=== PATIENT | female | born 1955 | race Caucasian/White ===

== ENCOUNTER 2017-12-09 10:07 | Emergency (ER) | payer OTHER ==
--- OUTSIDE RECORDS SUMMARY | 2017-12-09 10:09 | XMS REPORT | Continuity of Care Document ---
:1955 Author Organization Interface Problems Problem Status Onset Date Classification Date Comments Source Reported Medications Medication Details Route Status Patient Ordering Order Source Instructions Provider Date Allergies, Adverse Reactions, Alerts Substance Category Reaction Severity Reaction Status Date Comments Source type Reported Immunizations Immunization Date Given Site Status Last Updated Comments Source Results Order Results Value Reference Date Interpretation Comments Source Name Range Vital Signs Vital Sign Value Date Comments Source Encounters Location Location Encounter Encounter Reason Attending ADM DC Status Source Details Type Number For Provider Date Date Visit Outpatient [id number] TANIA 06/27 [facility] [place] Procedures Procedure Code Date Perfomer Comments Source
--- OUTSIDE RECORDS SUMMARY | 2017-12-09 10:09 | XMS REPORT | Clinical Summary ---
:1955 Author Organization [facility] Address [address] [place] [address] Care Team Providers Name Role Phone Raheel Trejo MD Primary Care Provider Allergies Active Allergy Reactions Severity Noted Date Comments Fluticasone-Salmeterol 08/11/2015 Severe Cough Codeine 08/10/2015 Levofloxacin Anaphylaxis High 08/11/2015 Tramadol 08/11/2015 Nausea, Hallucinations Current Medications Prescription Sig. Disp. Refills Start Date End Date Status albuterol (PROVENTIL Inhale 2 Active HFA;VENTOLIN HFA) 90 puffs every 6 mcg/actuation (six) hours inhaler as needed for wheezing. fluticasone 1 spray into Active (FLONASE) 50 each nostril mcg/actuation nasal daily. spray cetirizine (ZyrTEC) Take 10 mg by Active 10 MG tablet mouth daily. B-complex with Take 1 tablet Active vitamin C tablet by mouth daily. MULTIVIT WITH Take 1 tablet Active CALCIUM,IRON,MIN by mouth. (WOMEN'S DAILY MULTIVITAMIN ORAL) ERGOCALCIFEROL, Take by mouth Active VITAMIN D2, (VITAMIN daily. D2 ORAL) ascorbic acid Take 100 mg Active (VITAMIN C) 100 MG by mouth tablet daily. DULoxetine Take 20 mg by Active (CYMBALTA) 20 MG mouth daily. 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 (Primary Dx) 03/03/2017 Office Visit Rheumatology Vannessa Ambrose, Generalized OA ( Primary Dx); Hives; Vitamin D deficiency; Osteopenia; Fatigue, unspecified type 02/26/2017 Telephone Family Medicine Alexandra Mullins MD 02/26/2017 Telephone Rheumatology Vannessa Ambrose MD after 12/08/2016 Immunizations Name Dates Previously Given Next Due Influenza (IM) Preservative Free 03/09/2014 Tdap 10/13/2014 Family History Medical History Relation Name Comments Alcohol abuse Brother Diabetes Father Gallbladder disease Father Glaucoma Father Heart disease Father COPD Mother Gallbladder disease Mother Relation Name Status Comments Brother Father (Age 79) Mother (Age 90) Social History Tobacco Use Types Packs/Day Years Used Date Never Smoker Smokeless Tobacco: Never Used Alcohol Use Drinks/Week oz/Week Comments No Sex Assigned at Date Recorded Not on file Last Filed Vital Signs Vital Sign Reading Time Taken Blood Pressure 118/76 03/21/2017 2:14 PM CDT Pulse 78 03/21/2017 2:14 PM CDT Temperature 37.1 C (98.8 F) 03/03/2017 12:58 PM CDT Respiratory Rate 14 03/21/2017 2:14 PM CDT Oxygen Saturation 98% 03/21/2017 2:14 PM CDT Inhaled Oxygen Concentration - - Weight 56.3 kg (124 lb 3.2 oz) 03/21/2017 2:14 PM CDT Height 167.6 cm (5' 6") 03/21/2017 2:14 PM CDT Body Mass Index 20.05 03/21/2017 2:14 PM CDT Plan of Treatment Health Maintenance Due Date Last Done Comments SHINGRIX VACCINE (#1) 2006 BREAST CANCER SCREENING 04/09/2016 04/09/2014 ZOSTER VACCINE 2016 CERVICAL CANCER SCREENING 07/10/2017 07/10/2014 INFLUENZA VACCINE 01/07/2018 03/09/2014 COLON CANCER SCREENING 06/09/2023 06/09/2013 Procedures Procedure Name Priority Date/Time Associated Comments Diagnosis BONE DENSITY Routine 03/21/2017 2:05 Vitamin D Results for this PM CDT deficiency procedure are in the results section. VITAMIN D 25 HYDROXY Routine 03/03/2017 1:54 Generalized OA Results for this LEVEL PM CDT procedure are in the results section. RHEUMATOID FACTOR Routine 03/03/2017 1:54 Generalized OA Results for this PM CDT procedure are in the results section. HLA-B27 ANTIGEN Routine 03/03/2017 1:54 Generalized OA Results for this PM CDT procedure are in the results section. DNA AB SCREEN Routine 03/03/2017 1:54 Generalized OA Results for this PM CDT procedure are in the results section. CYCLIC CITRULLINATED Routine 03/03/2017 1:54 Generalized OA Results for this PEPTIDE AB, IGG PM CDT procedure are in the results section. C4 COMPLEMENT Routine 03/03/2017 1:54 Generalized OA Results for this COMPONENT PM CDT procedure are in the results section. C3 COMPLEMENT Routine 03/03/2017 1:54 Generalized OA Results for this COMPONENT PM CDT procedure are in the results section. KAROL SCREEN W IFA W Routine 03/03/2017 1:54 Generalized OA Results for this REFLEX TO TITER PM CDT procedure are in the results section. T4, FREE Routine 03/03/2017 1:54 Fatigue, Results for this PM CDT unspecified type procedure are in the results section. THYROID STIMULATING Routine 03/03/2017 1:54 Fatigue, Results for this HORMONE PM CDT unspecified type procedure are in the results section. URINALYSIS, AUTOMATED Routine 03/03/2017 1:54 Generalized OA Results for this WITH MICROSCOPY PM CDT procedure are in the results section. SEDIMENTATION RATE Routine 03/03/2017 1:54 Generalized OA Results for this PM CDT procedure are in the results section. C-REACTIVE PROTEIN Routine 03/03/2017 1:54 Generalized OA Results for this PM CDT procedure are in the results section. COMPREHENSIVE Routine 03/03/2017 1:54 Generalized OA Results for this METABOLIC PANEL PM CDT procedure are in the results section. CBC WITH PLATELET AND Routine 03/03/2017 1:54 Generalized OA Results for this DIFFERENTIAL PM CDT procedure are in the results section. after 12/08/2016 Results Bone Density (03/21/2017 2:05 PM) Narrative Performed At [facility] [address] [facility] [place] [address] Bone Density Report Name: Guru Vincent Sex: Female Age: 61 Ethnicity: White Height: 65.3 in Referring Provider: VANNESSA AMBROSE Date of : 1955 Weight: 124.2lb Indication: Postmenopausal; screening for osteoporosis Accession number: [id number] Bone Density: Exam date 03/21/2017 Region BMD (g/cm2) T-score Z-score Classification AP Spine(L1-L4) 1.1230.72.2 Normal Femoral Neck(Left) 0.811 -0.31.0 Normal Total Hip(Left) 0.907 -0.30.7 Normal Femoral Neck(Right) 0.8560.11.4 Normal Total Hip(Right) 0.9420.01.0 Normal Total Hip Mean 0.925 -0.2 0.9 Normal World Health Organization criteria for BMD impression classify patients as Normal (T-score at or above 1.0), Osteopenia (T-score between 1.0 and 2.5), or Osteoporosis (T-score at or below 2.5). 10-year Fracture Risk: FRAX not reported because: All T-scores for Spine Total, Hip Total, Femoral Neck at or above -1.0 Impression: The patient has normal bone mass. Discussion: This patient s bone mineral density is above the minimum desirable level (T-score -1.0 or better) at all sites measured. The patient should follow a healthful lifestyle (good nutrition with adequate calcium and vitamin D, and appropriate weight-bearing exercise). Follow-Up: Consider repeating this study in 5 years or sooner if there is some new clinical indication. Reported by: Hemanth Slater MD, RENALDO, MACE, FACP, CCD on 03/24/2017 5:49:00 AM. Performing Organization Address City/State/Zipcode Phone Number [facility] [address] [place] [address] KAROL SCREEN W IFA W REFLEX TO TITER (03/03/2017 1:54 PM) KAROL screen POSITIVE (A) NEGATIVE [facility] Comment: KAROL IFA is a first line screen for detecting the presence of up to approximately 150 autoantibodies in various autoimmune diseases. A positive KAROL IFA result is suggestive of autoimmune disease and reflexes to titer and pattern. Further laboratory testing may be considered if clinically indicated. Visit Physician FAQs for interpretation of all antibodies in the [place], prevalence, and association with diseases at http://education.[facility]/ faq/ILB898 KAROL pattern SPECKLED (A) [facility] Comment: Speckled pattern is associated with mixed connective tissue disease (MCTD), systemic lupus erythematosus (SLE), Sjogren's syndrome, dermatomyositis, and systemic sclerosis/polymyositis overlap. KAROL titer 1:40 (H) titer [facility] Comment: A low level KAROL titer may be present in pre-clinical autoimmune diseases and normal individuals. Reference Range <1:40Negative 1:40-1:80Low Antibody Level >1:80Elevated Antibody Level Specimen Blood Narrative Performed At FASTING:NO [facility] Resulting Agency Comment Performing Organization Information: Site ID: [id number] Name: [facility] Address: [address] [place] [phone] Director: Dr. Avel Mcleod Performing Organization Address [facility] Cent[facility] Phone Number [phone] [address] [address] DNA Ab screen (03/03/2017 1:54 PM) DNA ds antibody <1 IU/mL [facility] Comment: IU/mL Interpretation < or=4Negative 5-9 Indeterminate > or=10 Positive Specimen Blood Narrative Performed At FASTING:NO [facility] Resulting Agency Comment Performing Organization Information: Site ID: [id number] Name: [facility] Address: [address] [place] [phone] Director: Dr. Avel Mcleod Performing Organization Address [facility] [place]/Zipcode Phone Number [phone] [address] [address] HLA-B27 antigen (03/03/2017 1:54 PM) HLA B27 POSITIVE (A) NEGATIVE [facility] Specimen Blood Narrative Performed At FASTING:NO [facility] Resulting Agency Comment Performing Organization Information: Site ID: [id number] Name: [facility] Address: [address] [place] [phone] Director: Dr. Avel Mcleod Performing Organization Address [facility] Centercode Phone Number [employer] [address] Cyclic citrullinated peptide antibody, IgG (03/03/2017 1:54 PM) Cyclic citrullin peptide <16 UNITS [facility] Comment: II Reference Range Negative:<20 Weak Positive: 20-39 Moderate Positive: 40-59 Strong Positive: >59 Specimen Blood Narrative Performed At FASTING:NO [facility] Resulting Agency Comment Performing Organization Information: Site ID: [id number] Name: [facility] Address: [address] [place] [phone] Director: Dr. Avel Mcleod Performing Organization Address [facility] [place]/[facility] Phone Number [employer] [address] Vitamin D 25 hydroxy level (03/03/2017 1:54 PM) Vitamin D, 25-hydroxy 57 30 - 100 ng/mL [place] Comment: REPUBLIC Vitamin D Status 25-OH Vitamin D: Deficiency:<20 ng/mL Insufficiency: 20 - 29 ng/mL Optimal: > or=30 ng/mL For 25-OH Vitamin D testing on patients on D2-supplementation and patients for whom quantitation of D2 and D3 fractions is required, the [facility](TM) 25-OH VIT D, (D2,D3), LC/MS/MS is recommended: order code 03530 (patients >2yrs). For more information on this test, go to: http://education.[employer]/faq/OPN160 (This link is being provided for informational/educational purposes only.) Specimen Blood Narrative Performed At FASTING:NO [facility] Resulting Agency Comment Performing Organization Information: Site ID: [id number] Name: [facility] Address: [address] [place] [phone] Director: Fior Scruggs MD Performing Organization Address City/[facility]/Zipcode Phone Number [email or web address] [address] [phone] Urinalysis, automated with microscopy (03/03/2017 1:54 PM) Color, UA YELLOW YELLOW [place] [facility] Appearance CLEAR CLEAR [place] [facility] Specific gravity, urine 1.007 1.001 - 1.035 [facility] REPUBLIC pH, urine 6.0 5.0 - 8.0 [facility] Glucose, urine NEGATIVE NEGATIVE [facility] Bilirubin, UA NEGATIVE NEGATIVE [facility] Ketones, UA NEGATIVE NEGATIVE [facility] Occult blood, urine NEGATIVE NEGATIVE [facility] Protein, UA NEGATIVE NEGATIVE [facility] Nitrite, UA NEGATIVE NEGATIVE [facility] Leukocyte esterase, UA NEGATIVE NEGATIVE [facility] WBC, UA NONE SEEN < OR=5 /HPF [facility] RBC, UA NONE SEEN < OR=2 /HPF [facility] Squamous epithelial cells, UA NONE SEEN < OR=5 /HPF [facility] Bacteria, UA NONE SEEN NONE SEEN /HPF [facility] Hyaline casts, UA NONE SEEN NONE SEEN /LPF [facility] Specimen Urine Narrative Performed At FASTING:NO [facility] Resulting Agency Comment Performing Organization Information: Site ID: [id number] Name: [facility] Address: [address] [place] [phone] Director: Fior Scruggs MD Performing Organization Address [facility] Centercode Phone [email or web address] [address] Sedimentation rate (03/03/2017 1:54 PM) Sedimentation rate 6 < OR=30 mm/h [place] [facility] Specimen Blood Narrative Performed At FASTING:NO [facility] Resulting Agency Comment Performing Organization Information: Site ID: [id number] Name: [facility] Address: [address] [place] [phone] Director: Fior Scruggs MD Performing Organization Address City/State/[facility] Centercode [email or web address] [address] CBC with platelet and differential (03/03/2017 1:54 PM) WBC 5.3 3.8 - 10.8 Thousand/uL [place] [facility] RBC 4.19 3.80 - 5.10 Million/uL [place] [facility] HGB 13.9 11.7 - 15.5 g/dL [place] [facility] HCT 39.4 35.0 - 45.0 % [place] [facility] MCV 94.0 80.0 - 100.0 fL [place] [facility] MCH 33.2 (H) 27.0 - 33.0 pg [place] [facility] MCHC 35.3 32.0 - 36.0 g/dL [place] [facility] RDW 11.9 11.0 - 15.0 % [place] [facility] Platelet count 266 140 - 400 Thousand/uL [place] [facility] MPV 10.6 7.5 - 12.5 fL [place] [facility] Neutrophils, absolute 3,429 1,500 - 7,800 cells/uL [place] [facility] Lymphocytes, absolute 1,378 850 - 3,900 cells/uL [place] [facility] Monocytes, absolute 345 200 - 950 cells/uL [place] [facility] Eosinophils, absolute 90 15 - 500 cells/uL [place] [facility] Basophils, absolute 58 0 - 200 cells/uL [place] [facility] Neutrophils 64.7 % [place] [facility] Lymphocytes 26.0 % [place] [facility] Monocytes 6.5 % [place] [facility] Eosinophils 1.7 % [place] [facility] Basophils + RC 1.1 % [place] [facility] Specimen Blood Narrative Performed At FASTING:NO [facility] Resulting Agency Comment Performing Organization Information: Site ID: [id number] Name: [facility] Address: [address] [place] [phone] Director: Fior Scruggs MD Performing Organization Address City/[facility]/Zipcode Phone Number [email or web address] [place] [phone] Rheumatoid factor (03/03/2017 1:54 PM) Rheumatoid factor <14 <14 IU/mL [place] [facility] Specimen Blood Narrative Performed At FASTING:NO [facility] Resulting Agency Comment Performing Organization Information: Site ID: [id number] Name: [facility] Address: [address] [place] [phone] Director: Fior Scruggs MD Performing Organization Address City/State/Zipcode Phone Number [email or web address] [address] [address] C3 complement component (03/03/2017 1:54 PM) C3 complement 97 90 - 180 mg/dL [place] [facility] Specimen Blood Narrative Performed At FASTING:NO [facility] Resulting Agency Comment Performing Organization Information: Site ID: [id number] Name: [facility] Address: [address] [place], [place] [phone] Director: Fior Scruggs MD Performing Organization Address [facility] Centercode Phone [email or web address] [address] C4 complement component (03/03/2017 1:54 PM) C4 complement 22 16 - 47 mg/dL [place] [facility] Specimen Blood Narrative Performed At FASTING:NO [facility] Resulting Agency Comment Performing Organization Information: Site ID: [id number] Name: [facility] Address: [address] [place] [phone] Director: Fior Scruggs MD Performing Organization Address [facility] Centercosc Phone [email or web address] [address] C-reactive protein (03/03/2017 1:54 PM) CRP 0.6 <8.0 mg/L [place] [facility] Comment: Please note recent reference range and units of measure changes Specimen Blood Narrative Performed At FASTING:NO [facility] Resulting Agency Comment Performing Organization Information: Site ID: [id number] Name: [facility] Address: [address] [place] [phone] Director: Fior Scruggs MD Performing Organization Address [facility] [email or web address] [address] Thyroid stimulating hormone (03/03/2017 1:54 PM) TSH 1.21 0.40 - 4.50 mIU/L [place] [facility] Specimen Blood Narrative Performed At FASTING:NO [facility] Resulting Agency Comment Performing Organization Information: Site ID: [id number] Name: [facility] Address: [address] [place] [phone] Director: Fior Scruggs MD Performing Organization Address [facility] Phone [email or web address] [address] T4, free (03/03/2017 1:54 PM) T4, free 0.9 0.8 - 1.8 ng/dL [place] [facility] Specimen Blood Narrative Performed At FASTING:NO [facility] Resulting Agency Comment Performing Organization Information: Site ID: RGA Name: [facility] Address: [address] [place] [phone] Director: Fior Scruggs MD Performing Organization Address [facility] Centercode Phone Number [email or web address] REPUBLIC [address] [place] [phone] Comprehensive metabolic panel (03/03/2017 1:54 PM) Glucose 94 65 - 99 mg/dL [place] Comment: REPUBLIC Fasting reference interval BUN, whole blood 20 7 - 25 mg/dL [place] [facility] Creatinine 0.88 0.50 - 0.99 [place] Comment: mg/dL REPUBLIC For patients >49 years of age, the reference limit for Creatinine is approximately 13% higher for people identified as -[place]. EGFR Non-Afr. [place] 71 > OR=60 [facility] mL/min/1.73m2 REPUBLIC EGFR 83 > OR=60 [facility] mL/min/1.73m2 REPUBLIC BUN/creatinine ratio NOT APPLICABLE 6 - 22 (calc) [place] [facility] Sodium 138 135 - 146 mmol/L [place] [facility] Potassium 4.3 3.5 - 5.3 mmol/L [place] [facility] Chloride 102 98 - 110 mmol/L [place] [facility] CO2 30 20 - 31 mmol/L [place] [facility] Calcium 9.9 8.6 - 10.4 mg/dL [place] [facility] Protein 7.3 6.1 - 8.1 g/dL [place] [facility] Albumin, S 4.7 3.6 - 5.1 g/dL [place] [facility] Globulin, total 2.6 1.9 - 3.7 g/dL [place] (calc) REPUBLIC Albumin/globulin ratio 1.8 1.0 - 2.5 (calc) [place] [facility] Total bilirubin 0.6 0.2 - 1.2 mg/dL [place] [facility] Alkaline phosphatase 89 33 - 130 U/L [place] [facility] AST 31 10 - 35 U/L [place] [facility] ALT 21 6 - 29 U/L [place] [facility] Specimen Blood Narrative Performed At FASTING:NO [facility] Resulting Agency Comment Performing Organization Information: Site ID: [id number] Name: [facility] Address: [address] [place] [phone] Director: Fior Scruggs MD Performing Organization Address City/[facility]/Zipcode Phone Number [email or web address] [place] [address] [place] [address] after 12/08/2016 Insurance Payer Benefit Plan / Group Subscriber ID Type Phone Address AETNA AETNA HMO,POS,EPO, MC/EC xxxxxxxxxx HMO [phone] [place], [facility] [address]
[2017-12-09] MEDS ORDERED: ONDANSETRON 4 MG/2 ML VIAL ONE ×2 (10:58→18:58)
[2017-12-09] MEDS ORDERED: NA CHLORIDE 0.9% 1,000 ML ONE ×2 (10:58→16:12)
[2017-12-09 11:18] LABS: Absolute Lymphocytes (CBC) 0.5 K/uL (0.7-4.9); Absolute Monocytes 0.6 K/uL (0.1-1.3); Absolute Neutrophil 16.5 K/uL (1.8-8.0); Basophils % 0.3 % (0-1.3); Eosinophils % 0.5 % (0-4.4); Hematocrit 41.5 % (36.0-45.0); Lymphocytes % 2.7 % (15.3-44.8); MCH 34.4 pg (27.0-35.0); MCV 101.2 fL (80-100); MPV 8.1 fL (7.6-11.3); Monocytes % 3.6 % (3.3-12.3)
[2017-12-09 11:28] LABS: Protime INR 1.13
[2017-12-09] MEDS ORDERED: FENTANYL CITR 100 MCG/2 ML ONE ×2 (11:42→17:40)
[2017-12-09 11:47] LABS: Blood Morphology Comment NOT SEEN (NOT SEEN); Platelet Estimate ADEQ; Urine White Blood Cell Casts OK
[2017-12-09 11:48] LABS: ALT/SGPT 25 U/L (12-78); AST/SGOT 25 U/L (15-37); Albumin 3.3 g/dL (3.4-5.0); Alkaline Phosphatase 99 U/L (45-117); BUN Blood Urea Nitrogen 16 mg/dL (7-18); Bicarbonate 29 mmol/L (21-32); Bilirubin Direct 0.3 mg/dL (0-0.2); CKMB Creatine Kinase MB < 1.0 ng/mL (0.3-3.6); Creatine Phosphokinase 78 U/L (26-192); Glucose Level 100 mg/dL (74-106); Magnesium 1.9 mg/dL (1.8-2.4); NT PRO-BNP 223 pg/mL (<125); Potassium 3.2 mmol/L (3.5-5.1); Protein, Total 7.5 g/dL (6.4-8.2); Sodium Level 135 mmol/L (136-145)
--- NOTE | 2017-12-09 13:07 | RAD REPORT ---
EXAM DESCRIPTION: CT - Chest For Pe Angio - 12/09/2017 12:46 pm CLINICAL HISTORY: Chest pain. CHEST PAIN COMPARISON: THORAX W CONTRAST dated 11/04/2014; Chest Single View dated 12/09/2017 TECHNIQUE: CT angiogram of the pulmonary arteries was performed with MIP. All CT scans are performed using dose optimization technique as appropriate and may include automated exposure control or mA/KV adjustment according to patient size. FINDINGS: No evidence of pulmonary thromboembolism. No acute aortic finding demonstrated. Enlarged area of lung consolidation is seen in the left lung base without significant air bronchogram s, most compatible with pneumonia. Additional nodular opacities are also present in the left lower lo be adjacent to the area of consolidation, the largest measuring 2 cm. Areas of bronchiectasis are not ed in the right middle lobe and lingula. Heavily calcified granuloma is present in the right lower lo be. A mild mosaic appearance to the lung jones is seen. Trace left pleural fluid. Mildly prominent lymph nodes are seen in the mediastinum, particularly the subcarinal station with largest is 15 mm in short axis. No concerning bony finding. IMPRESSION: No evidence of pulmonary thromboembolism. Large area of airspace consolidation left lung base posteriorly as detailed favors pneumonia. Followu p bronchoscopy may be of value for further assessment.
--- NOTE | 2017-12-09 13:14 | RAD REPORT ---
EXAM DESCRIPTION: RAD - Chest Single View - 12/09/2017 11:33 am CLINICAL HISTORY: Cough. COMPARISON: 2011. FINDINGS: Bilateral pulmonary nodules are present. An opacity is present within the left lower lobe. The heart is normal in size. IMPRESSION: 1. Bilateral pulmonary nodules may represent metastatic disease or infection. 2. Left basilar opacity may represent pneumonia or a mass.
[2017-12-09] MEDS ORDERED: CEFTRIAXONE/SWI 1gm 1 GM/10 ML SYR ONE (13:28)
[2017-12-09] MEDS ORDERED: KETOROLAC 30 MG/ML INJ ONE (13:28)
[2017-12-09] MEDS ORDERED: ACETAMINOPHEN 325 MG TABLET ONE (13:34)
[2017-12-09] MEDS ORDERED: AZITHROMYCIN 250 MG TAB ONE (14:41)
--- NOTE | 2017-12-09 15:34 | EKG ---
Test Date: 2017-12-09 Test Time: 10:54:23 Medical Assisting Program Director: DANIELA MEASUREMENT RESULTS: Intervals: Rate: 86 IN: 136 QRSD: 84 QT: 372 QTc: 445 [place]: P: 59 IN: 136 QRS: 76 T: 67 INTERPRETIVE STATEMENTS: Normal sinus rhythm Normal ECG No previous ECG available for comparison Electronically Signed On 12-09-17 15:33:34 CDT by Sagar Ramirez
--- NOTE | 2017-12-09 17:36 | ER ---
Nurse's Notes [facility] Name: Reyna Vincent Age: 62 yrs Sex: Female : 1955 Arrival Date: 12/09/2017 Time: 10:09 Bed 5 Private MD: None, None Diagnosis: Lobar pneumonia, unspecified organism;Pleurodynia Presentation: 12/09 10:20 Presenting complaint: Patient states: Urgent care sent us over here, woke up last hj night, woke up with shoulder pain , L hip pain; reports nausea and vomiting, started having diarrhea today, reports non productive cough; had a temp of 102.3, last night; took tylenol and not helping; reports just got from a trip;. Transition of care: patient was not received from another setting of care. Onset of symptoms was December 09, 2017. Risk Assessment: Do you want to hurt yourself or someone else? Patient reports no desire to harm self or others. Initial Sepsis Screen: Does the patient meet any 2 criteria? No. Patient's initial sepsis screen is negative. Does the patient have a suspected source of infection? No. Patient's initial sepsis screen is negative. Care prior to arrival: None. 10:20 Method Of Arrival: Ambulatory hj 10:20 Acuity: JON 3 hj Triage Assessment: 10:29 General: Appears in no apparent distress. uncomfortable, Behavior is calm, cooperative, hj appropriate for age. Pain: Complains of pain in abdomen. GI: Reports diarrhea, nausea, vomiting. Historical: - Allergies: 10:28 Tramadol HCl; hj 10:28 Codeine; hj 10:28 levacore; hj 10:28 Tamiflu; hj - Home Meds: 10:28 B complex-minerals oral oral daily [Active]; Vitamin D3 oral oral [Active]; Mirian 180 hj mg Oral tab 1 tab once daily [Active]; ipratropium bromide 0.02 % inhalation soln 1.25 mL 3 times per day [Active]; duloxetine 20 mg oral cpDR 1 cap 2 times per day [Active]; fluticasone prop, micro (bulk) 100 % miscellaneous powd [Active]; ProAir HFA 90 mcg/actuation inhalation HFAA 1 puff every 4 hours [Active]; Pepcid 20 mg Oral tab 1 tab every 6 hours [Active]; Zyrtec 10 mg Oral tab 1 tab once daily [Active]; - PMHx: 10:28 Depression; allergy; hj - PSHx: 10:28 None; hj - Immunization history:: Adult Immunizations up to date. - Social history:: Smoking status: Patient/guardian denies using tobacco, Patient/guardian denies using alcohol. - Ebola Screening: : Patient negative for fever greater than or equal to 101.5 degrees Fahrenheit, and additional compatible Ebola Virus Disease symptoms Patient denies exposure to infectious person Patient denies travel to an Ebola-affected area in the 21 days before illness onset. Screenin:29 Abuse screen: Denies threats or abuse. Denies injuries from another. Nutritional hj screening: No deficits noted. Tuberculosis screening: No symptoms or risk factors identified. Fall Risk None identified. Assessment: 10:29 GI: Bowel sounds present X 4 quads. Abd is soft. hj 10:45 General: Appears in no apparent distress. comfortable, Behavior is calm, cooperative, aj appropriate for age. Pain: Complains of pain in abdomen, anterior aspect of left shoulder and posterior aspect of left shoulder. Neuro: Level of Consciousness is awake, alert, obeys commands, Oriented to person, place, time, situation, Appropriate for age. Cardiovascular: Capillary refill < 3 seconds in bilateral fingers Patient's skin is warm and dry. Respiratory: Airway is patent Respiratory effort is even, unlabored, Respiratory pattern is regular, symmetrical. GI: Reports lower abdominal pain, upper abdominal pain, diarrhea, nausea, vomiting. Derm: Skin is intact, is healthy with good turgor, Skin is pink, warm \T\ dry. normal. 13:30 Reassessment: Patient appears in no apparent distress at this time. No changes from tw2 previously documented assessment. Patient and/or family updated on plan of care and expected duration. Pain level reassessed. Patient is alert, oriented x 3, equal unlabored respirations, skin warm/dry/pink. 14:40 Reassessment: Patient appears in no apparent distress at this time. No changes from tw2 previously documented assessment. Patient and/or family updated on plan of care and expected duration. Pain level reassessed. Patient is alert, oriented x 3, equal unlabored respirations, skin warm/dry/pink. 15:52 Reassessment: Patient appears in no apparent distress at this time. No changes from tw2 previously documented assessment. Patient and/or family updated on plan of care and expected duration. Pain level reassessed. Patient is alert, oriented x 3, equal unlabored respirations, skin warm/dry/pink. Vital Signs: 10:30 BP 88 / 51; Pulse 89; Resp 18; Temp 98.8(TE); Pulse Ox 98% on R/A; Weight 56.7 kg; hj Height 5 ft. 5 in. (165.10 cm); Pain 2/10; 10:39 BP 102 / 82; Pulse 85; Resp 20; Pulse Ox 98% on R/A; aj 11:00 BP 106 / 54; Pulse 88; Resp 18; Pulse Ox 95% on R/A; aj 11:30 BP 104 / 53; Pulse 90; Resp 18; Pulse Ox 94% on R/A; aj 12:00 BP 106 / 54; Pulse 88; Resp 18; Pulse Ox 96% on R/A; aj 13:25 Temp 99.2(O); aj 14:40 BP 102 / 56; Pulse 109; Resp 22; Pulse Ox 96% on R/A; tw2 15:52 BP 103 / 41; Pulse 90; Resp 21; Pulse Ox 95% ; tw2 17:19 BP 114 / 53; Pulse 86; Resp 18; Pulse Ox 99% on R/A; aj 10:30 Body Mass Index 20.80 (56.70 kg, 165.10 cm) ED Course: 10:09 Patient arrived in ED. mr 10:10 None, None is Private Physician. mr 10:24 Triage completed. hj 10:29 Arm band placed on left wrist. hj 10:29 Patient has correct armband on for positive identification. Placed in gown. Bed in low hj position. Call light in reach. Side rails up X 1. 10:35 Valerie Melara, IRAIDA is Primary Nurse. aj 10:37 Sg Unger MD is Attending Physician. gs 10:45 Inserted saline lock: 22 gauge in right antecubital area, using aseptic technique. aj Blood collected. By Carla Tristan RN. 10:58 EKG done, by medical technologist. reviewed by Sg Unger MD. at1 11:31 X-ray completed. Portable x-ray completed in exam room. Patient tolerated procedure mh1 well. 11:33 XRAY Chest (1 view) In Process Unspecified. EDMS 12:[address] vr 12:46 CT Chest For PE Angio In Process Unspecified. EDMS 15:53 No provider procedures requiring assistance completed. tw2 Administered Medications: 11:03 Drug: NS 0.9% 1000 ml Route: IV; Rate: 1 bolus; Site: right antecubital; aj 11:03 Drug: Zofran 4 mg Route: IVP; Site: right antecubital; aj 12:13 Follow up: Response: Nausea is decreased aj 11:44 Drug: fentaNYL (PF) 25 mcg Route: IVP; Site: right antecubital; aj 12:13 Follow up: Response: Pain is decreased aj 13:22 Drug: TORadol 30 mg Route: IVP; Site: right antecubital; aj 17:42 Follow up: Response: Pain is decreased aj 13:23 Drug: Rocephin 1 grams Route: IV; Rate: calculated rate; Site: right antecubital; tw2 13:28 Follow up: IV Status: Completed infusion tw2 13:30 Drug: Tylenol 650 mg Route: PO; aj 19:03 Follow up: Response: Temperature is decreased aj 14:39 Drug: Zithromax 500 mg Route: PO; tw2 17:42 Follow up: Response: No adverse reaction aj 16:24 Drug: NS 0.9% 1000 ml Route: IV; Rate: 1 bolus; Site: right antecubital; aj 17:42 Follow up: Response: No adverse reaction; IV Status: Completed infusion; IV Intake: aj 1000ml 17:41 Drug: fentaNYL (PF) 25 mcg Route: IVP; Site: right antecubital; aj 19:03 Follow up: Response: Pain is decreased aj 19:02 Drug: Zofran 4 mg Route: IVP; Site: right antecubital; aj 19:03 Follow up: Response: No adverse reaction; Medication administered at discharge. aj Intake: 17:42 IV: 1000ml; Total: 1000ml. aj Outcome: 17:36 ER care complete, transfer ordered by . gs 19:04 Patient left the ED. aj Signatures: Dispatcher [employer] EDMS Valerie Melara, RN RN Alma Rosa Ibarra mr Kaleigh Mathis 1 Katy Kumar vr Valerie foster, gas engine operator generators EKG Tat1 Josef Saucedo RN RN hj Carla Tristan RN RN tw2 Sg Unger MD MD gs Corrections: (The following items were deleted from the chart) 10:32 10:30 Pulse 89bpm; Resp 18bpm; Pulse Ox 98% RA; Temp 98.8F Temporal; 56.7 kg; Height 5 hj ft. 5 in.; BMI: 20.8; Pain 2/10; hj 10:32 10:30 Pulse 89bpm; Resp 18bpm; Pulse Ox 98% RA; Temp 98.8F Temporal; 56.7 kg; Height 5 hj ft. 5 in.; BMI: 20.8; Pain 2/10; 11:11 10:28 Home Meds: Qvar 80 mcg/actuation inhalation aero 1 puff 2 times per day; tw 11:49 10:20 Presenting complaint: Patient states: Urgent care sent us over here, woke up last hj night, woke up with shoulder pain , L hip pain; reports nausea and vomiting, started having diarrhea today, reports non productive cough; had a temp of 102.3, last night; took tylenol and not helping;
--- NOTE | 2017-12-09 17:36 | EDPHYS ---
Physician Documentation [facility] Name: Reyna Vincent Age: 62 yrs Sex: Female : 1955 Arrival Date: 12/09/2017 Time: 10:09 Bed 5 Private MD: None, None ED Physician Sg Unger HPI: 12/09 17:25 This 62 yrs old Female presents to ER via Ambulatory with complaints of gs Abdominal Pain, Nausea, Diarrhea. 17:32 The patient or guardian reports chest pain that is located primarily in the anterior gs chest wall, left. Onset: this morning. The pain radiates to Associated signs and symptoms: Pertinent positives: shortness of breath. The chest pain is described as sharp. Duration: The patient or guardian reports multiple episodes, that are intermittent. Modifying factors: the symptoms are aggravated by deep breath. Severity of pain: At its worst the pain was severe in the emergency department the pain is unchanged. The patient has not experienced similar symptoms in the past. Historical: - Allergies: 10: Tramadol HCl; hj 10: Codeine; hj 10: levacore; hj 10: Tamiflu; hj - Home Meds: :28 B complex-minerals oral oral daily [Active]; Vitamin D3 oral oral [Active]; Mirian 180 hj mg Oral tab 1 tab once daily [Active]; ipratropium bromide 0.02 % inhalation soln 1.25 mL 3 times per day [Active]; duloxetine 20 mg oral cpDR 1 cap 2 times per day [Active]; fluticasone prop, micro (bulk) 100 % miscellaneous powd [Active]; ProAir HFA 90 mcg/actuation inhalation HFAA 1 puff every 4 hours [Active]; Pepcid 20 mg Oral tab 1 tab every 6 hours [Active]; Zyrtec 10 mg Oral tab 1 tab once daily [Active]; - PMHx: 10:28 Depression; allergy; hj - PSHx: : None; hj - Immunization history:: Adult Immunizations up to date. - Social history:: Smoking status: Patient/guardian denies using tobacco, Patient/guardian denies using alcohol. - Ebola Screening: : Patient negative for fever greater than or equal to 101.5 degrees Fahrenheit, and additional compatible Ebola Virus Disease symptoms Patient denies exposure to infectious person Patient denies travel to an Ebola-affected area in the 21 days before illness onset. ROS: 17:32 All other systems are negative. gs Exam: 17:32 Head/Face: Normocephalic, atraumatic. Eyes: Pupils equal round and reactive to light, gs extra-ocular motions intact. Lids and lashes normal. Conjunctiva and sclera are non-icteric and not injected. Cornea within normal limits. Periorbital areas with no swelling, redness, or edema. ENT: Nares patent. No nasal discharge, no septal abnormalities noted. Tympanic membranes are normal and external auditory canals are clear. Oropharynx with no redness, swelling, or masses, exudates, or evidence of obstruction, uvula midline. Mucous membranes moist. Neck: Trachea midline, no thyromegaly or masses palpated, and no cervical lymphadenopathy. Supple, full range of motion without nuchal rigidity, or vertebral point tenderness. No Meningismus. Chest/axilla: Normal chest wall appearance and motion. Nontender with no deformity. No lesions are appreciated. Abdomen/GI: Soft, non-tender, with normal bowel sounds. No distension or tympany. No guarding or rebound. No evidence of tenderness throughout. Back: No spinal tenderness. No costovertebral tenderness. Full range of motion. Skin: Warm, dry with normal turgor. Normal color with no rashes, no lesions, and no evidence of cellulitis. MS/ Extremity: Pulses equal, no cyanosis. Neurovascular intact. Full, normal range of motion. Neuro: Awake and alert, GCS 15, oriented to person, place, time, and situation. Cranial nerves II-XII grossly intact. Motor strength 5/5 in all extremities. Sensory grossly intact. Cerebellar exam normal. Normal gait. 17:32 Constitutional: The patient appears alert, awake. 17:32 Cardiovascular: Rate: normal, Rhythm: regular, Pulses: no pulse deficits are appreciated. 17:32 ECG was reviewed by the Attending Physician. 17:32 Respiratory: mild respiratory distress is noted, Respirations: tachypnea, Breath sounds: decreased breath sounds, that are moderate, are heard in the left posterior lower lobe. Vital Signs: 10:30 BP 88 / 51; Pulse 89; Resp 18; Temp 98.8(TE); Pulse Ox 98% on R/A; Weight 56.7 kg; hj Height 5 ft. 5 in. (165.10 cm); Pain 2/10; 10:39 BP 102 / 82; Pulse 85; Resp 20; Pulse Ox 98% on R/A; aj 11:00 BP 106 / 54; Pulse 88; Resp 18; Pulse Ox 95% on R/A; aj 11:30 BP 104 / 53; Pulse 90; Resp 18; Pulse Ox 94% on R/A; aj 12:00 BP 106 / 54; Pulse 88; Resp 18; Pulse Ox 96% on R/A; aj 13:25 Temp 99.2(O); aj 14:40 BP 102 / 56; Pulse 109; Resp 22; Pulse Ox 96% on R/A; tw2 15:52 BP 103 / 41; Pulse 90; Resp 21; Pulse Ox 95% ; tw2 17:19 BP 114 / 53; Pulse 86; Resp 18; Pulse Ox 99% on R/A; aj 10:30 Body Mass Index 20.80 (56.70 kg, 165.10 cm) MDM: 10:49 Patient medically screened. 17:32 Differential diagnosis: coronary artery disease pneumonia, pulmonary embolus, thoracic gs aortic disection. Data reviewed: vital signs, nurses notes. 12/09 10:51 Order name: Basic Metabolic Panel; Complete Time: 11:51 12/09 10:51 Order name: CBC with Diff; Complete Time: 11:51 12/09 10:51 Order name: Ckmb; Complete Time: 11:51 12/09 10:51 Order name: CPK; Complete Time: 11:51 12/09 10:51 Order name: LFT's; Complete Time: 11:51 12/09 10:51 Order name: Magnesium; Complete Time: 11:51 12/09 10:51 Order name: NT PRO-BNP; Complete Time: 11:51 12/09 10:51 Order name: PT-INR; Complete Time: 11:34 12/09 10:51 Order name: Troponin (emerg Dept Use Only); Complete Time: 11:51 12/09 10:51 Order name: XRAY Chest (1 view); Complete Time: 17:36 12/09 10:51 Order name: D-Dimer; Complete Time: 11:34 12/09 11:25 Order name: CBC Smear Scan; Complete Time: 11:51 EDMS 12/09 11:51 Order name: Lipase; Complete Time: 12:19 12/09 13:01 Order name: Blood Culture* 12/09 10:51 Order name: EKG; Complete Time: 10:51 12/09 10:51 Order name: Cardiac monitoring; Complete Time: 10:52 12/09 10:51 Order name: EKG - Nurse/Tech; Complete Time: 12:13 12/09 10:51 Order name: IV Saline Lock; Complete Time: 10:53 12/09 11:31 Order name: CT Chest For PE Angio; Complete Time: 13:14 12/09 16:52 Order name: Diet Regular; Complete Time: 16:52 12/09 10:51 Order name: Labs collected and sent; Complete Time: 10:53 12/09 10:51 Order name: O2 Per Protocol; Complete Time: 10:53 12/09 10:51 Order name: O2 Sat Monitoring; Complete Time: 10:53 EC:32 Rate is 86 beats/min. Rhythm is regular. MT interval is normal. QRS interval is normal. gs T waves are Normal. No ST changes noted. Clinical impression: Normal ECG. Interpreted by me. Administered Medications: 11:03 Drug: NS 0.9% 1000 ml Route: IV; Rate: 1 bolus; Site: right antecubital; aj 11:03 Drug: Zofran 4 mg Route: IVP; Site: right antecubital; aj 12:13 Follow up: Response: Nausea is decreased aj 11:44 Drug: fentaNYL (PF) 25 mcg Route: IVP; Site: right antecubital; aj 12:13 Follow up: Response: Pain is decreased aj 13:22 Drug: TORadol 30 mg Route: IVP; Site: right antecubital; aj 17:42 Follow up: Response: Pain is decreased aj 13:23 Drug: Rocephin 1 grams Route: IV; Rate: calculated rate; Site: right antecubital; tw2 13:28 Follow up: IV Status: Completed infusion tw2 13:30 Drug: Tylenol 650 mg Route: PO; aj 19:03 Follow up: Response: Temperature is decreased aj 14:39 Drug: Zithromax 500 mg Route: PO; tw2 17:42 Follow up: Response: No adverse reaction aj 16:24 Drug: NS 0.9% 1000 ml Route: IV; Rate: 1 bolus; Site: right antecubital; aj 17:42 Follow up: Response: No adverse reaction; IV Status: Completed infusion; IV Intake: 1000ml 17:41 Drug: fentaNYL (PF) 25 mcg Route: IVP; Site: right antecubital; aj 19:03 Follow up: Response: Pain is decreased aj 19:02 Drug: Zofran 4 mg Route: IVP; Site: right antecubital; aj 19:03 Follow up: Response: No adverse reaction; Medication administered at discharge. Disposition: 17:32 Critical Care:. Disposition: 12/09/17 17:36 Transfer ordered to [facility]. Diagnosis are Lobar pneumonia, unspecified organism, Pleurodynia. - Reason for transfer: Higher level of care. - Accepting physician is leela/akiko. - Condition is Stable. - Problem is new. - Symptoms have improved. Critical care time excluding procedures: 17:32 Critical care time: Bedside Care: 10 minutes, Consultation: 10 minutes, Family gs Intervention: 10 minutes. Total time: 30 minutes Signatures: Dispatcher [employer] EDValerie Awan RN RN aj Joaquin, Henry, RN RN hj Wise, Tara, RN RN rust Sg Unger MD MD Corrections: (The following items were deleted from the chart) 11:11 10:28 Home Meds: Qvar 80 mcg/actuation inhalation aero 1 puff 2 times per day; david tw2 17:42 17:36 12/09/2017 17:36 Transfer ordered to [facility]. Diagnosis is Lobar pneumonia, unspecified organism; Pleurodynia. Reason for transfer: Higher level of care. Accepting physician is leela. Condition is Stable. Problem is new. Symptoms have improved. 19:04 17:42 12/09/2017 17:36 Transfer ordered to [facility]. Diagnosis is aj Lobar pneumonia, unspecified organism; Pleurodynia. Reason for transfer: Higher level of care. Accepting physician is leela/akiko. Condition is Stable. Problem is new. Symptoms have improved.
== END 2017-12-09 19:04 | disposition short-term general hospital (02) ==
LOC: ER 10:07
DX: J18.1 Lobar pneumonia, unspecified organism (principal); R07.81 Pleurodynia; F32.9 Major depressive disorder, single episode, unspecified; Z88.5 Allergy status to narcotic agent; Z88.6 Allergy status to analgesic agent; Z88.8 Allergy status to other drugs, medicaments and biological substances
CPT/HCPCS: 36415; 71045; 71275; 80048; 80076; 82550; 82553; 83690; 83735; 83880; 84484; 85025; 85379; 85610; 87040; 93005; 96361; 96374; 96375; 99284; J0696; J2405; J3010; J7030; Q9967